=== PATIENT | male | born 1980 | race Caucasian/White ===

== ENCOUNTER 2016-07-22 14:46 | Emergency (ER) | payer SELFPAY ==
[~2016-07-22] VITALS: Ht 157.5 cm; Wt 71.5 kg
[2016-07-22 14:49] VITALS: Ht 157.5 cm; Wt 71.5 kg
== END 2016-07-22 22:26 | disposition left against medical advice (07) ==
LOC: E/R 14:46
DX: Z53.21 Procedure and treatment not carried out due to patient leaving prior to being seen by health care provider (principal)